=== PATIENT | male | born 1985 | race Two or more races ===

== ENCOUNTER → 2022-06-01 | Outpatient (CLI) | payer OTHER ==
[~2022-06-01] MED LIST: PROHANCE 279.3MG/ML 15ML VIAL ONE; PROHANCE 279.3MG/ML 5ML VIAL ONE
== END ==
LOC: M PLAIMG 09:18
PROVIDERS: ATTEND Physician Assistant
DX: M85.642 Other cyst of bone, left hand (principal)
CPT/HCPCS: 73220; A9576

== ENCOUNTER → 2022-08-12 | Outpatient (CLI) | payer OTHER ==
[~2022-08-12] MED LIST changes: +PERC5TAB12 PO; -PROHANCE 279.3MG/ML 15ML VIAL ONE; -PROHANCE 279.3MG/ML 5ML VIAL ONE
== END ==
LOC: M SOG 09:02
PROVIDERS: ATTEND Physician Assistant
DX: M79.642 Pain in left hand (principal); R93.6 Abnormal findings on diagnostic imaging of limbs

== ENCOUNTER 2022-08-13 08:26 | Day surgery (SDC) | payer OTHER ==
[~2022-08-13] VITALS: Ht 175.3 cm; Wt 89.4 kg
[2022-08-13] MEDS ORDERED: propofoL 200 MG/20 ML VIAL As Ordered ONE ×2 (08:59→09:39)
[2022-08-13] MEDS ORDERED: KETOROLAC 60MG 2ML VIAL As Ordered ONE (08:59)
[2022-08-13] MEDS ORDERED: fentaNYL 100 MCG/2 ML INJECTION As Ordered ONE (08:59)
[2022-08-13] MEDS ORDERED: MIDAZOLAM INJ 2MG/2ML VIAL As Ordered ONE (08:59)
[2022-08-13] MEDS ORDERED: ONDANSETRON 4MG 2ML VIAL As Ordered ONE (08:59)
[2022-08-13] MEDS ORDERED: LIDOCAINE 2% 100MG/5ML SDV (FOR ANES.) As Ordered ONE (08:59)
[2022-08-13] MEDS ORDERED: ceFAZolin 2 GM/D5W 50 ML IV BAG As Ordered ONE (09:13)
[2022-08-13] MEDS ORDERED: ceFAZolin SOD 2 GM in IV 1 EA IV ONE (09:20)
[2022-08-13] MEDS ORDERED: LABETALOL 100MG/20ML VIAL As Ordered ONE (09:37)
[2022-08-13] MEDS ORDERED: PERC5TAB12 PO (10:24)
[2022-08-13 10:55] VITALS: BP 108/56; TEMP 97.4; O2SAT 99
[2022-08-13] MEDS ORDERED: NITROGLYCERIN IN D5W 25MG/250ML (100MCG/ML) As Ordered ONE (10:57)
== END 2022-08-13 11:00 | disposition home or self-care (01) ==
LOC: M SDC 08:26
PROVIDERS: ATTEND Orthopaedic Surgery Hand Surgery
DX: L72.0 Epidermal cyst (principal); I10 Essential (primary) hypertension
CPT/HCPCS: 26111; 87070; 87075; 87205; 88305; J0690; J1100; J1885; J2250; J2405; J3010; S0020